=== PATIENT | male | born 1935 | race Caucasian/White ===

== ENCOUNTER 2017-07-28 06:17 | Day surgery (SDC) | payer MEDICARE ==
[~2017-07-28] VITALS: Ht 165.1 cm; Wt 93.3 kg
[2017-07-28] MEDS ORDERED: IOHEXOL 350 MG/ML 100 ML BTL (for Cath Lab) OTHER ONE (06:18)
[2017-07-28] MEDS ORDERED: NS 1000P @30 MLS/HR (KVO) IV SCH (06:45)
[2017-07-28] MEDS ORDERED: SODIUM CHLOR 0.9% 1000 ML INJ 1,000 ML IV SCH ×2 (06:50→09:43)
[2017-07-28] MEDS ORDERED: diphenhydrAMINE HCL 50 MG/ML VIAL IV PUSH SCH (07:00)
[2017-07-28] MEDS ORDERED: MIDAZOLAM HCL 2 MG/2 ML VIAL IV PUSH SCH (07:00)
[2017-07-28 07:24] VITALS: BP 173/96; PULSE 73; RESP 18; TEMP 98.1; O2SAT 95
[2017-07-28] MEDS ORDERED: ADVI200T17 PO (07:37)
[2017-07-28] MEDS ORDERED: COQ-100C5 PO (07:37)
[2017-07-28] MEDS ORDERED: METO25TA3 PO (07:37)
[2017-07-28] MEDS ORDERED: PRAV80TA2 PO (07:37)
[2017-07-28] MEDS ORDERED: LOSA100T PO (07:37)
[2017-07-28] MEDS ORDERED: OCUVTAB4 PO (07:37)
[2017-07-28] MEDS ORDERED: VITA100052 PO (07:37)
[2017-07-28] MEDS ORDERED: PRIL20TA2 PO (07:37)
[2017-07-28] MEDS ORDERED: AMLO5 PO (07:37)
[2017-07-28] MEDS ORDERED: MIDAZOLAM HCL 2 MG/2 ML VIAL ONE (08:23)
[2017-07-28] MEDS ORDERED: ADENOSINE STRESS TEST INJ 90 MG/30 ML VIAL ONE (08:58)
[2017-07-28] MEDS ORDERED: NITROGLYCERIN INJ 5 ML ONE (08:58)
[2017-07-28] MEDS ORDERED: HEPARIN-NS/PF INJ 500 ML ONE (09:34)
[2017-07-28] MEDS ORDERED: SODIUM CHLORIDE 0.9% FLUSH 10 ML FLUSH IV FLUSH PRN (09:45)
[2017-07-28] MEDS ORDERED: MISC INFORMATION XX ONE (09:45)
--- NOTE | 2017-07-28 10:15 | CATHPROC ---
[place] HIS Report Study Information Study Number Admission Scheduled Start Study Start [id number] Jul 28 2017 6:17AM 07/28/2017 Jul 28 2017 7:49AM [place] [facility] Cardiac Catheterization Admit Source Facility Department Other [facility] - Information Technology Officer Physician and Clinical Staff Initial MD Washington, Michael Hob Grinder Hope Guardado,KIRIT Other cathlab, cathlab Recorder Mindy Solorio,NON DESTRUCTIVE TESTING SPECIALIST TECH2 Scrub Cayetano Calderón RCIS(BS) Procedures Performed Procedure Location (Site) Vessel Name Coronary Angiograms LCA Left Coronary Coronary Angiograms RCA Right Coronary Wire insertion Fem Art (right) Femoral Art Equipment Time Paving Machine Operator Description Size Mfg Part Number Used/Scraped [id number] 08:22 MCKEON BOOKER SWAN FLORENCIO CATHETER FR 7 Used *[id number] TRANSDUCER, TRUWAVE [id number] 08:22 MCKEON BOOKER * Used W/STOCKCOCK *[id number] 09:23 Estately SCIENTIFIC VL3 GUIDE CATHETER RUNWAY FR 6 Used *[id number] 09:38 [employer] MEDICAL VASCADE, FR6 CLOSURE SYSTEM FR 6\7 Used *[id number] *[id number] [phone] *[id number] [phone] *[id number] 538-420 *[id number] [phone] *1332904 [phone] *[id number] [phone] *[id number] 08:22 [employer] INDUSTRIES PACK, CCL CUSTOM * Used *[id number] 08:22 [employer] PACER PEN, SKIN DUAL W/ RULER * Used *[id number] 08:23 [employer] MEDICAL SHEATH, FR4.5 PRELUDE 11CM FR 4.5 Used [id number]- 09:38 [employer] MEDICAL SHEATH, FR6.5 PRELUDE 11CM FR 6.5 038ACT Used *[id number] 08:22 [employer] MEDICAL WIRE, 3MMJ .035 180CM 180CM Used *[id number] 08:22 NAMIC MANIFOLD, 2 PORT * Used *[id number] 08:22 NAMIC MANIFOLD, 4 PORT * Used *[id number] 08:22 [employer]COMED OMNIPAQUE, 350 MG, 150ML 150ML [id number] Used [id number] 08:22 BARTHOL[employer]W MEDICAL BLANKET,WARM AIR CCL * Used *[id number] 08:22 TERUMO MEDICAL SHEATH, FR7 TERUMO (10CM) FR 7 Used *[id number] 08:56 VOL[employer]O PRIME WIRE, VERRATA 185CM 185CM [id number] *[id number] Used History: Allergies Allergy Reaction No Known Allergies History: Risk Factors Family History of Hypertension Dyslipidemia Previous PA Previous Heart Failure Premature CAD Yes No Yes No No Prior Valve Prior PCI Prior CABG Surgery No No No Cerebrovascular Peripheral Artery Chronic Lung On Dialysis Diabetes Disease Disease Disease No No No No No History: Stress Tests Stress or Imaging Studies Performed No History: Other Current Smoker No Labs Hgb (g/dl) Hct (%) RBC (MIL/MM3) WBC (l/cumm) Platelets (thousands) 11.60-17.00 35.00-51.00 4.00-5.90 4.00-11.00 150.00-450.00 16.1 47.6 5 6.3 185 Glucose (mg/dl) BUN (mg/dl) Creatinine (mg/dl) BUN:Creatinine (1:x) 74.00-106.00 7.00-18.00 0.50-1.30 10.00-20.00 107 23 0.9 25.6 Na (meq/l) K (meq/l) Cl (meq/l) CO2 (mmol/L) Ca (mg/dl) 136.00-145.00 3.50-5.10 98.00-107.00 21.00-32.00 8.50-10.10 137 4.9 100 24 8.9 Medication Medication Total Dose (Bolus/Oral) Medication Total Dosage/Unit 1% XYLOCAINE 20 mL FENTANYL 25 mcg HEPARIN 7500 units NTG (IC) 300 mcg VERSED 2 mg Medications (Bolus/Oral) Medication Time Given Dosage/Unit Administered By Reason VERSED 07/28/2017 8:25:53 AM 2 mg Hope Guardado 2 mg VERSED given in lab by Hope Guardado RN in Left Wrist via Peripheral IV. Ordered by Mark. [place] FENTANYL 07/28/2017 8:26:12 AM 25 mcg Hope Guardado 25 mcg FENTANYL given in lab by Hope Guardado RN in Left Wrist via Peripheral IV. Ordered by Mark. Sally 1% XYLOCAINE 07/28/2017 8:28:48 AM 20 mL Michael Washington 20 mL 1% XYLOCAINE given in lab by Michael Washington in Right Groin via Subcutaneous. Ordered by Michael Zavala. HEPARIN 07/28/2017 8:56:41 AM 5000 units Hope Guardado 5000 units HEPARIN given in lab by Hope Guardado, KIRIT via Peripheral IV. Ordered by Michael Washington . HEPARIN 07/28/2017 9:23:00 AM 2500 units Hope Guardado 2500 units HEPARIN given in lab by Hope Guardado RN in Left Wrist via Peripheral IV. Ordered by Michael Baca. NTG (IC) 07/28/2017 9:28:57 AM 100 mcg Cayetano Calderón 100 mcg NTG (IC) given in lab by Cayetano Calderón RCIS(BS) in Right Groin via Intra-coronary. Ordered by Michael Young. NTG (IC) 07/28/2017 9:33:49 AM 100 mcg Cayetano Calderón 100 mcg NTG (IC) given in lab by Cayetano Calderón RCIS(BS) in Right Groin via Intra-coronary. Ordered by Michael Young. NTG (IC) 07/28/2017 9:34:16 AM 100 mcg Cayetano Calderón 100 mcg NTG (IC) given in lab by Cayetano Calderón RCIS(BS) in Right Groin via Intra-coronary. Ordered by Michael Young. Medication (Drip) Medication Time Given Dosage/Unit Concentration/Unit Diluent (ml) Pilar on ADENOSINE DRIP 07/28/2017 9:29:23 AM 140 mcg/kg/min 90 mg 90 NaCl .9 140 mcg/kg/min ADENOSINE DRIP given in lab by Hope Guardado, KIRIT via Peripheral IV. Pump/Drip Flow = 783.72 ml/hr using NaCl .9 with a concentration of 90 mg in 90 ml. Ordered by Michael Washington. IV Solutions 07/28/2017 8:01:08 AM 0 mL (IV) 500 NaCl .9 Patient arrived on IV Solutions in Left Wrist via Peripheral IV. Pump/Drip Flow = 100 ml/hr using NaC l .9. IV Solutions 07/28/2017 8:01:53 AM 0 mL (IV) 500 NaCl .9 Patient arrived on IV Solutions in Left Wrist via Peripheral IV. Pump/Drip Flow = 20 ml/hr using NaCl .9. Initial Case Assessment Cardiovascular HR NIBP Chest Pain 73 153/84 0 Edema Present Skin color Skin None Normal Warm Dry Circulatory - Right Pulses Dorsalis Pedis Femoral 2 2 Scale (0,1,2,3,4,d) Circulatory - Left Pulses Dorsalis Pedis Femoral 2 2 Scale (0,1,2,3,4,d) Neurological State Oriented to time-place- Alert Moves all extremities person Respiration - General Respiration Rate SpO2 (%) (B/min) 15 96 Final Case Assessment Cardiovascular HR NIBP Chest Pain 63 126/66 0 Edema Present Skin color Skin None Normal Warm Dry Circulatory - Right Pulses Dorsalis Pedis Femoral 2 2 Scale (0,1,2,3,4,d) Circulatory - Left Pulses Dorsalis Pedis Femoral 2 2 Scale (0,1,2,3,4,d) Neurological State Oriented to time-place- Alert Moves all extremities person Respiration - General Respiration Rate SpO2 (%) (B/min) 17 94 Chronological Log Time Study Chronological Log 8:00:57 Patient arrived via Bed. 8:00:58 Patient Name, D.O.B, / Armband Verified By R.N. 8:00:59 Consent signed by the physician and the patient and verified by the Information Technology Officer staff. 8:00:59 Pre-op and post- op instructions given; patient acknowledges understanding of instructions. Verbal Stimulation=~VERBAL~ Physical Stimulation=~PHYSICAL~ Airway=~AIRWAY~ Respiration=~RESPIR ATION~ 8:01:00 TOTAL=~TOTAL~. (0=absent, 1=limited, 2=present) 8:01:01 Presedation assessment performed by Information Technology Officer RN. 8:01:03 Immediate Presedation assesment performed by physician. 8:01:03 Patient has been NPO for More than 6Hrs. 8:01:04 Skin Breakdown- 8:01:04 Patient Warmer Placed on the Table. 8:01:06 Tu Prominences Protected 8:01:07 A # 20 IV was noted in the Wrist (left). Grade = 0 8:01:08 Patient arrived on IV Solutions in Left Wrist via Peripheral IV. Pump/Drip Flow = 100 ml/hr using NaCl .9. 8:01:08 History and physical on the chart or being dictated. 8:01:53 Patient arrived on IV Solutions in Left Wrist via Peripheral IV. Pump/Drip Flow = 20 ml/hr using NaCl .9. Vitals capture started with the following parameters, Patient=Adult, Interval=5 min, Initial Pr jujphz=444 mmHg, 8:05:25 Deflation Rate=5 mmHg, Cuff placed on Left Arm 8:06:12 HR=73 bpm, GZCC=621/84 mmhg, SpO2=96.0 %, Resp=15 B/min, Pain=0, Lito=10, Blackwell=2 Assessment: Initial Case, HR=73 BPM, HQAI=441/84 mmhg, Chest Pain=0, Edema=None, Color=Normal, S kin = Warm, Dry Right Pulses: Dane Ped=2, Femoral=2 8:07:20 Left Pulses: Dane Ped=2, Femoral=2 Neurological: State=Alert, Ox3, SNELL Respiration: Resp=15 B/min, SpO2=96 % 8:11:09 HR=73 bpm, TPKB=054/80 mmhg, SpO2=96.0 %, Resp=14 B/min, Pain=0, Lito=10, Blackwell=2 8:16:08 HR=75 bpm, RMNL=099/83 mmhg, SpO2=96.0 %, Resp=14 B/min, Pain=0, Lito=10, Blackwell=2 8:21:09 HR=70 bpm, QWRE=685/75 mmhg, SpO2=95.0 %, Resp=15 B/min, Pain=0, Lito=10, Blackwell=2 8:22:00 Bilateral groins prepped with 2% chlorhexidine, and draped after a 3 minute waiting time. 8:22:32 Pressure channel 1 zeroed. Time Out. Correct patient, correct procedure, correct physician, power injector loaded, or not l oaded with contrast with 8:24:51 surgical team present. Time Out Concurred by MD and individual staff in procedure. 8:25:53 2 mg VERSED given in lab by Hope Guardado, RN in Left Wrist via Peripheral IV. Ordered by Michael Washington. 8:26:12 25 mcg FENTANYL given in lab by Hope Guardado, KIRIT in Left Wrist via Peripheral IV. Ordered by Michael Washington. 8:26:30 Case Start 8:26:43 HR=79 bpm, SHKN=223/78 mmhg, SpO2=95.0 %, Resp=15 B/min, Pain=0, Lito=10, Blackwell=2 8:28:48 20 mL 1% XYLOCAINE given in lab by Michael Washington in Right Groin via Subcutaneous. Ordered by Michael Washington. 8:28:49 Access site was Right Femoral Artery. 8:29:03 A SHEATH, FR4.5 PRELUDE 11CM FR 4.5 was advanced into the Fem Art (right) using the Modified Seldinger technique. 8:29:52 Access site was Right Femoral Vein. 8:29:58 A SHEATH, FR7 TERUMO (10CM) FR 7 was advanced into the Fem Vein (right) using the Modified S eldinger technique. 8:30:12 Reference ECG taken 8:30:40 A SWAN FLORENCIO CATHETER FR 7 was inserted via Fem Vein (right) 8:31:09 HR=77 bpm, LVWX=920/65 mmhg, SpO2=90.0 %, Resp=25 B/min, Pain=0, Lito=10, Blackwell=2 Recorded Pressure: RV, HR=74, Condition=Condition 1 8:31:16 (Right Ventricle) RV 37/3/7 Recorded Pressure: MPA, HR=72, Condition=Condition 1 8:31:33 (Main Pulmonary Artery) MPA 29/17 Recorded Pressure: PCW, HR=74, Condition=Condition 1 8:31:47 (Pulmonary Capillary Wedge) PCW 14/8 Thermo CO: CO=6.1 l/m, HR=71 bpm, Condition=Condition 1. Used in calculation. 8:32:50 Equipment: Description and Size=SWAN FLORENCIO CATHETER FR 7, Type=Bath Probe, CC=0.579 Injectant: Temp=19.0 - 22.0 Celsius, Volume=10.0 ml Thermo CO: CO=6.2 l/m, HR=69 bpm, Condition=Condition 1. Used in calculation. 8:33:15 Equipment: Description and Size=SWAN FLORENCIO CATHETER FR 7, Type=Bath Probe, CC=0.579 Injectant: Temp=19.0 - 22.0 Celsius, Volume=10.0 ml Thermo CO: CO=6.8 l/m, HR=70 bpm, Condition=Condition 1. Used in calculation. 8:33:43 Equipment: Description and Size=SWAN FLORENCIO CATHETER FR 7, Type=Bath Probe, CC=0.579 Injectant: Temp=19.0 - 22.0 Celsius, Volume=10.0 ml 8:36:06 HR=73 bpm, ABQT=917/64 mmhg, SpO2=89.0 %, Resp=14 B/min, Pain=0, Lito=10, Blackwell=2 8:36:30 Saturation: Site=PA (Pulmonary Artery) , O2=81.1 %, Hgb=16.1 gm/dl, Condition=Condition 1. U sed in calculation. 8:36:55 Saturation: Site=RV (Right Ventricle) , O2=79.8 %, Hgb=16.1 gm/dl, Condition=Condition 1. Us ed in calculation. 8:37:33 Saturation: Site=RAlo (Low Right Atrium) , O2=82.3 %, Hgb=16.1 gm/dl, Condition=Condition 1. Used in calculation. 8:37:44 Saturation: Site=FA (Femoral Artery) , O2=93.7 %, Hgb=16.1 gm/dl, Condition=Condition 1. Use d in calculation. Recorded Pressure: RA, HR=71, Condition=Condition 1 8:38:24 (Right Atrium) RA 8 8:38:43 [place] Florencio Catheter Removed Recorded Pressure: Ao, HR=69, Condition=Condition 1 8:40:41 (Aorta) Ao 104/59/79 A JL 4.0 INFINITI CATHETER FR 4 was advanced over a wire. OMNIPAQUE, 350 MG, 150ML 150ML was use d for 8:40:50 injections. 8:41:02 Saturation: Site=Eron (Mid Right Atrium) , O2=81.9 %, Hgb=16.1 gm/dl, Condition=Condition 1. Used in calculation. 8:41:07 HR=69 bpm, ZQMJ=249/67 mmhg, SpO2=90.0 %, Resp=15 B/min, Pain=0, Lito=10, Blackwell=2 8:41:27 Saturation: Site=RA (Right Atrium) , O2=77.2 %, Hgb=16.1 gm/dl, Condition=Condition 1. Used in calculation. 8:42:22 The LCA was injected and visualized at various angles. OMNIPAQUE, 350 MG, 150ML 150ML used. 8:46:08 HR=69 bpm, EICY=990/64 mmhg, SpO2=90.0 %, Resp=16 B/min, Pain=0, Lito=10, Blackwell=2 8:46:43 Catheter was removed A 3DRC INFINITI CATHETER FR 4 was advanced over a wire. OMNIPAQUE, 350 MG, 150ML 150ML was used for 8:49:05 injections. 8:49:35 The RCA was injected and visualized at various angles. OMNIPAQUE, 350 MG, 150ML 150ML used. A SHEATH, FR6.5 PRELUDE 11CM FR 6.5 was exchanged in the Fem Art (right). This was necessary in order for 8:50:23 catheter support. 8:51:07 HR=77 bpm, LJKN=643/69 mmhg, SpO2=91.0 %, Resp=15 B/min, Pain=0, Lito=10, Blackwell=2 8:56:06 HR=74 bpm, ECRP=214/75 mmhg, SpO2=93.0 %, Resp=24 B/min, Pain=0, Lito=10, Blackwell=2 8:56:41 5000 units HEPARIN given in lab by Hope Guardado RN via Peripheral IV. Ordered by Michael Polk. After removing the current catheter a XB 3.5 GUIDE CATHETER FR 6 was advanced over a WIRE, 3MMJ .035 180CM 8:58:19 180CM. 9:01:12 HR=75 bpm, WWOR=828/68 mmhg, SpO2=92.0 %, Resp=21 B/min, Pain=0, Lito=10, Blackwell=2 After removing the current catheter a XB 3.0 GUIDE CATHETER FR 6 was advanced over a WIRE, 3MMJ .035 180CM 9:01:19 180CM. After removing the current catheter a JL 3.5 GUIDE CATHETER FR 6 was advanced over a WIRE, 3MMJ .035 180CM 9:04:41 180CM. 9:06:09 HR=74 bpm, HMPU=693/69 mmhg, SpO2=93.0 %, Resp=21 B/min, Pain=0, Lito=10, Blackwell=2 After removing the current catheter a JL 4.0 GUIDE CATHETER FR 6 was advanced over a WIRE, 3MMJ .035 180CM 9:09:46 180CM. 9:10:55 Activated Clotting Time Drawn 9:11:08 HR=74 bpm, NHNA=420/72 mmhg, SpO2=94.0 %, Resp=20 B/min, Pain=0, Lito=10, Blackwell=2 After removing the current catheter a MPA-1 GUIDE CATHETER FR 6 was advanced over a WIRE, 3MMJ . 035 180CM 9:15:27 180CM. 9:15:53 Activated Clotting Time Drawn 9:16:09 HR=71 bpm, DHIH=950/64 mmhg, SpO2=94.0 %, Resp=25 B/min, Pain=0, Lito=10, Blackwell=2 9:16:18 ACT (Normal Range 90-180) = 247 9:17:40 ACT (Normal Range 90-180) = 247 After removing the current catheter a VL3 GUIDE CATHETER RUNWAY FR 6 was advanced over a WIRE, 3 MMJ .035 9:19:46 180CM 180CM. 9:21:10 HR=71 bpm, ZOFR=025/67 mmhg, SpO2=94.0 %, Resp=21 B/min, Pain=0, Lito=10, Blackwell=2 9:23:00 2500 units HEPARIN given in lab by Hope Guardado, KIRIT in Left Wrist via Peripheral IV. Orde red by Michael Washington. 9:23:34 Wire removed 9:23:54 A PRIME WIRE, VERRATA 185CM 185CM was inserted via Fem Art (right). 9:26:13 HR=71 bpm, QFXQ=927/63 mmhg, SpO2=93.0 %, Resp=18 B/min, Pain=0, Lito=10, Blackwell=2 9:28:57 100 mcg NTG (IC) given in lab by Cayetano Calderón RCIS(BS) in Right Groin via Intra-coronary. Ord ered by Michael Washington. 140 mcg/kg/min ADENOSINE DRIP given in lab by Hope Guardado, RN via Peripheral IV. Pump/Drip F low = 783.72 9:29:23 ml/hr using NaCl .9 with a concentration of 90 mg in 90 ml. Ordered by Michael Washington. 9:31:10 HR=81 bpm, YYIL=045/64 mmhg, SpO2=97.0 %, Resp=20 B/min, Pain=0, Lito=10, Blackwell=2 9:32:20 ADENSINE DRIP DISCONTINUED 9:32:33 The PRIME WIRE, VERRATA 185CM 185CM was removed. .85 9:33:49 100 mcg NTG (IC) given in lab by Cayetano Calderón RCIS(BS) in Right Groin via Intra-coronary. Or dered by Michael Washington. 9:34:16 100 mcg NTG (IC) given in lab by Cayetano Calderón RCIS(BS) in Right Groin via Intra-coronary. Or dered by Michael Washington. 9:35:44 Catheter was removed 9:35:55 Catheter(s) removed without difficulty 9:36:09 HR=44 bpm, GUMT=741/64 mmhg, SpO2=93.0 %, Resp=17 B/min, Pain=0, Lito=10, Blackwell=2 9:36:48 An injection in the Fem Art (right) was made through the SHEATH, FR6.5 PRELUDE 11CM FR 6.5. 9:38:31 VASCADE, FR6 CLOSURE SYSTEM FR 6\7 placement in the Fem Art (right) 9:38:50 Case End 9:41:12 HR=56 bpm, QLRQ=449/60 mmhg, SpO2=94.0 %, Resp=17 B/min, Pain=0, Lito=10, Blackwell=2 9:46:11 HR=68 bpm, WEDQ=150/67 mmhg, SpO2=94 %, Resp=19 B/min, Pain=0, Lito=10, Blackwell=2 9:51:10 HR=66 bpm, ZKWQ=141/64 mmhg, SpO2=93.0 %, Resp=14 B/min, Pain=0, Lito=10, Blackwell=2 9:56:15 HR=68 bpm, EHIM=960/65 mmhg, SpO2=93.0 %, Resp=10 B/min, Pain=0, Lito=10, Blackwell=2 9:59:25 Sterile dressing applied to site 10:00:57 No case complications noted. 10:00:58 Cine recording checked. 10:01:02 Bedside Report will be given. 10:01:03 Contrast Scanned 10:01:05 A Left and Right Heart Cath was performed. Assessment: Final Case, HR=63 BPM, IMHG=003/66 mmhg, Chest Pain=0, Edema=None, Color=Normal, Sk in = Warm, Dry Right Pulses: Dane Ped=2, Femoral=2 10:01:12 Left Pulses: Dane Ped=2, Femoral=2 Neurological: State=Alert, Ox3, SNELL Respiration: Resp=17 B/min, SpO2=94 % 10:01:16 HR=63 bpm, COOJ=827/66 mmhg, SpO2=95.0 %, Resp=17 B/min, Pain=0, Lito=10, Blackwell=2 10:01:38 Vitals capture stopped. 10:04:[address] [facility] [place] [facility] End Study - Contrast Media Used In Study Contrast Total Opened (mL) Total Used (mL) Total Wasted (mL) Omnipaque 185 185 0 End Study - Maximum Contrast Load Max Contrast Load (mL) 518.4 End Study - Radiation Exposure Fluoro Time (minutes) 26.1 End Study - Patient Disposition Complications Transferred To Interventional Outcome No Telemetry Bed successful
--- NOTE | 2017-07-28 10:44 | MA ---
cc: SHIRLEY SANTO M.D., MARK B. M.D. DATE July 28, 2017 PROCEDURE PERFORMED 1. Right heart catheterization. 2. Left heart catheterization. 3. Coronary arteriography. 4. Fractional flow reserve measurement left anterior descending artery. 5. Right femoral angiography. PROCEDURE TECHNIQUE The patient was taken to the cardiac catheterization laboratory following informed consent. The area of the right groin was prepped and draped in the usual sterile manner. Following 20 mL of 1% Xylocaine for local anesthesia in the right groin. Initially a 4-Micronesian short introducer sheath was placed in the right femoral artery and a 6-Micronesian sheath in the right femoral vein via the modified Seldinger technique. Through the 6-Micronesian introducer sheath a Poth-Maryellen thermodilution catheter passed into the right heart and pressures measured in the right atrium, right ventricle, pulmonary and pulmonary capillary wedge positions. Triplicate thermodilution cardiac outputs were performed and this catheter was removed. The left heart study was performed with a 4-Micronesian JL-4, and 3DRC catheters. Multiple projections of the left and right coronaries were taken and a left ventriculogram was not performed. Due to severe aortic stenosis, the aortic valve was not crossed. Following the diagnostic study, there was a 65-70% stenosis noted in the mid- LAD that needed further interrogation functionally and it was decided to proceed with FFR evaluation. The patient was given a total of 7000 units of heparin to maintain an ACT of approximately 253 seconds. The diagnostic catheters were removed and replaced initially with an XB 3.5, an XB 3.0, a JL-4.0, JL-3.5, JL 3.0, and multipurpose catheters all of which were not satisfactory in cannulating the left coronary artery due to its superior takeoff. This was successfully cannulated with the use of a floppy guidewire manipulating a Voda high takeoff 6-Micronesian guide catheter which was utilized for the remainder of the procedure. Through this guiding catheter an FFR wire was passed into the distal LAD without difficulty. Measurements were performed using intravenous adenosine for 4 minutes. The patient was also given multiple doses of intracoronary nitroglycerin. Following this procedure it was found that the FFR was 0.85 and no further intervention was performed. The FFR wire was removed. There was some distal LAD spasm noted related to the wire which resolved after intracoronary nitroglycerin. After observation for a few minutes in the catheterization laboratory, the patient remained asymptomatic. The catheter was then removed and the introducer sheath was removed following a right femoral angiogram for placement of a Vascade device in the right femoral artery. Good hemostasis was obtained. The femoral venous sheath will be removed when the ACT is below 175 seconds. The patient tolerated procedure well. There were no immediate complications. HEMODYNAMIC DATA RIGHT HEART PRESSURES The right atrium A-wave = 8, V-wave = 5, mean = 4 mmHg. Right ventricle 37/7 mmHg. Pulmonary artery pressure is 29/7 with a mean pulmonary artery pressure of 17 mmHg. PULMONARY CAPILLARY WEDGE PRESSURE A-wave = 14, V-wave = 11, mean = 8 mmHg. The cardiac output by thermodilution is 6.4 liters per minute. The cardiac index is 3.2 liters per minute per meter2. Oxygen saturations do not indicate any step up for intracardiac shunting. LEFT HEART PRESSURES The left ventricle was not entered. For complete hemodynamic details please see accompanying paperwork repair. ANGIOGRAPHIC FINDINGS LEFT VENTRICLE: Not performed. LEFT CORONARY ARTERY: The left coronary artery arises normally from the left coronary sinus. There is a superior takeoff making cannulation difficult. The left main trunk is normal. LEFT ANTERIOR DESCENDING ARTERY: The left anterior descending artery is a moderate caliber vessel giving rise to one major diagonal branch as it courses to the apex. The LAD has moderate luminal irregularities. There is an area of 15-20% noted in the midsegment and followed by an eccentric stenosis of 65-70% in the mid-region, mild luminal irregularities throughout the remainder of the mid and distal segment. The diagonal branch is large in caliber and has a 50% ostial stenosis. There are some mild calcifications noted throughout the proximal and mid-LAD. CIRCUMFLEX: The main circumflex gives rise to a high lateral branch and posterolateral branch. It is a nondominant vessel. The circumflex and its branches have only mild luminal irregularities. RIGHT CORONARY ARTERY: The right coronary artery has moderate calcifications, is a large-caliber vessel and is a dominant vessel. It gives rise to a posterior descending branch and multiple posterior ventricular branches. Mild luminal irregularities are seen. The posterior descending branch is large in caliber and normal. There are two small posterior ventricular branches followed by a large posterior lateral branch. That is normal. DIAGNOSIS 1. Moderate single-vessel coronary atherosclerosis. 2. 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 3. Normal left ventricular function. Ejection fraction 60% by recent echocardiography. 4. FFR evaluation - Mid-LAD stenosis 0.85. COMMENT/RECOMMENDATIONS Angiographically, this patient will be treated medically for his coronary artery disease at this time based upon as lack of symptoms and FFR evaluation. However, he will need aortic valve replacement and consultation will be obtained to determine if he will be a candidate for TAVR versus traditional surgical aortic valve replacement. He will be referred to Dr. Morales for possible TAVR He will be discharged to home later today when ambulatory and stable. MD ROBERT Landeros/SSB /9:48 AM /10:01 AM ERIC
[2017-07-28] MEDS ORDERED: HEPARIN SODIUM - IV 10,000 UNITS/10 ML VIAL ONE (10:47)
[2017-07-28] MEDS ORDERED: SODIUM CHLORIDE 0.9% FLUSH 10 ML FLUSH IV FLUSH SCH (21:00)
== END 2017-07-28 16:10 | disposition home or self-care (01) ==
LOC: HDIC 06:17 → HDOC 06:17
PROVIDERS: ATTEND Internal Medicine Interventional Cardiology
DX: I25.10 Atherosclerotic heart disease of native coronary artery without angina pectoris (principal); I35.0 Nonrheumatic aortic (valve) stenosis; I70.0 Atherosclerosis of aorta; I10 Essential (primary) hypertension
CPT/HCPCS: 82810; 85002; 93456; 93571; C1760; C1769; C1887; C1893; G0269; J0153; J1644; J2250; J3010; J7030; Q9967